=== PATIENT | male | born 1965 | race Caucasian/White ===

== ENCOUNTER 2017-01-23 00:22 | Emergency (ER) | payer OTHER ==
[2017-01-23] MEDS ORDERED: PENICILLIN V POTASSIUM 500 MG TABLET ONE (01:51)
== END 2017-01-23 02:18 | disposition home or self-care (01) ==
LOC: ED 00:22
DX: K08.89 Other specified disorders of teeth and supporting structures (principal); F17.210 Nicotine dependence, cigarettes, uncomplicated; Z86.73 Personal history of transient ischemic attack (TIA), and cerebral infarction without residual deficits
CPT/HCPCS: 99283 ×2; A9270